=== PATIENT | female | born 1990 | race Two or more races ===

== ENCOUNTER 2018-08-04 13:06 | Emergency (ER) | payer OTHER ==
[~2018-08-04] VITALS: Ht 157.5 cm; Wt 63.0 kg
[2018-08-04 13:13] VITALS: BP 124/73
[2018-08-04 17:11] LABS: CLARITY URINE CLOUDY (CLEAR); COLOR URINE YELLOW (YELLOW); KETONES URINE NEGATIVE (NEGATIVE); LEUKOCYTE ESTERASE URINE NEGATIVE (NEGATIVE); NITRITE URINE NEGATIVE (NEGATIVE); OCCULT BLOOD URINE NEGATIVE (NEGATIVE); PH URINE 7.5 (4.5-8.0); PROTEIN URINE NEGATIVE (NEGATIVE); SPECIFIC GRAVITY URINE 1.017 (1.005-1.030); UROBILINOGEN URINE 0.2 E.U./dL (0.2-1.0)
== END 2018-08-04 15:51 | disposition home or self-care (01) ==
LOC: ER 13:06
DX: N30.90 Cystitis, unspecified without hematuria (principal); Z98.890 Other specified postprocedural states
CPT/HCPCS: 81025; 99283